=== PATIENT | male | born 1995 | race Caucasian/White ===

== ENCOUNTER 2022-06-05 18:22 | Emergency (ER) | payer MEDICAID ==
[~2022-06-05] VITALS: Ht 182.9 cm; Wt 86.2 kg
[2022-06-05 18:22] VITALS: BP_SYST 138
[~2022-06-05 18:22] MED LIST: ARIP30TA PO; CONCERTA
--- NOTE | 2022-06-05 18:22 | NUR ---
BROUGHT IN BY [facility] AND TRIAGED, AWAITING ER BED AVAILABILITY.
--- NOTE | 2022-06-05 18:30 | NUR ---
PT PICKED UP IN FRONT OF A [employer] FOR C/O ABD PAIN AND MOUTH PAIN PT STATES PAIN IS UPPER ABDOMINAL, STATES LEFT LOWER MOUTH PAIN DUE TO BAD DENTAL ISSUES. PT STATES THAT TODAY HE HAS BEEN VOMITING ALOT
[2022-06-05] MEDS ORDERED: PANTOPRAZOLE SODIUM 40 MG/VIAL (PROTONIX) IVP ONE (18:45)
[2022-06-05] MEDS ORDERED: ONDANSETRON HCL 4 MG/2 ML VIAL IVP ONE (18:45)
[2022-06-05] MEDS ORDERED: KETOROLAC TROMETHAMINE 30 MG VIAL IVP ONE (18:45)
[2022-06-05] MEDS ORDERED: NACL 0.9% 1,000 ML IV ONE (18:45)
[2022-06-05 19:00] LABS: BASOPHILS % (AUTO) 0.3 % (0.0-2.0); EOSINOPHILS % (AUTO) 0.2 % (0.0-4.0); HEMATOCRIT 49.8 % (36-54); MEAN CORPUSCULAR HEMOGLOBIN 31 pg (27-31); MEAN CORPUSCULAR HGB CONC 34 % (32-36); MEAN CORPUSCULAR VOLUME 89 fL (79.0-98.0); MONOCYTES # (AUTO) 0.7 K/uL (0.0-1.0); MONOCYTES % (AUTO) 7.1 % (1.7-9.3); NEUTROPHILS # (AUTO) 8.2 K/uL (1.8-7.7); NEUTROPHILS % (AUTO) 82.4 % (40.0-70.0); PLATELET COUNT (AUTO) 211 K/uL (130-430); RED BLOOD CELL COUNT(AUTO) 5.57 MIL/uL (4.2-6.2); RED CELL DISTRIBUTION WIDTH 12.4 % (9.0-15.0)
[2022-06-05 19:22] LABS: CALCIUM 9.3 mg/dL (8.4-11.0); CREATININE 0.94 mg/dL (0.55-1.30)
[2022-06-05 19:26] LABS: ALBUMIN 4.2 g/dL (3.4-4.8); TOTAL BILIRUBIN 1.1 mg/dL (0.0-1.0)
--- NOTE | 2022-06-05 21:30 | NUR ---
COVID AND FLU SWAB WALKED TO LAB
[2022-06-05] MEDS ORDERED: PENICILLIN G BENZATHINE 1.2 MMU/2 ML SYR IM ONE (22:00)
[2022-06-05] MEDS ORDERED: OMEP-268 PO (22:07)
[2022-06-05 23:25] VITALS: BP_SYST 137
--- NOTE | 2022-06-05 23:29 | NUR ---
PT IS MEDICALLY CLESRED FOR DISCHARGE, ALL VITAL SIGNS ARE STABLE AND WITHIN NORMAL LIMITS. NO RX, IV D/C PRIOR TO DISCHARGE. PT VERBLIZED UNDERSTANDING OF ALL /C INSTRUCTIONS. THIS TIME AMBULATED OUT OF ER
== END 2022-06-05 23:33 | disposition home or self-care (01) ==
LOC: SED 18:22
DX: K21.9 Gastro-esophageal reflux disease without esophagitis (principal); K02.9 Dental caries, unspecified; R11.10 Vomiting, unspecified; R10.13 Epigastric pain; Z79.899 Other long term (current) drug therapy; Z20.822 Contact with and (suspected) exposure to COVID-19
CPT/HCPCS: 99284; 96374; 96375; 96361; 87426; 80053; 83690; 85025; 36415; 96372; 87804 ×2; J0561; J1885; J2405; C9113; J7030